=== PATIENT | male | born 1970 | race Caucasian/White ===

== ENCOUNTER 2017-01-19 12:53 | Observation (INO) | payer OTHER ==
[2017-01-19] VITALS (9 sets, daily range): BP systolic 99–145; BP diastolic 65–89; PULSE 69–90; RESP 17–20; TEMP 97.4–98.3; O2SAT 95–99
[~2017-01-19] VITALS: Ht 167.6 cm; Wt 100.0 kg
[2017-01-19] MEDS ORDERED: ZYRT10CA PO (13:04)
[2017-01-19] MEDS ORDERED: ASPIRIN 81 MG CHEW TAB PO ONE (13:45)
[2017-01-19] MEDS ORDERED: SODIUM CHLORIDE 0.9% FLUSH 5 ML FLUSH IVF PRN ×2 (13:45→17:15)
--- NOTE | 2017-01-19 14:03 | RADRPT ---
EXAM DATE/TIME: 01/19/2017 14:00 [facility] COMPARISON: No previous studies available for comparison. INDICATIONS : Left side chest pains, radiating into left arm with numbness, pain and left lower jaw pain. MEDICAL HISTORY : None. SURGICAL HISTORY : None. ENCOUNTER: Initial ACUITY: 2 days PAIN SCORE: 9/10 LOCATION: Left chest FINDINGS: PA and lateral views of the chest demonstrate the lungs to be symmetrically aerated without evidence of mass, infiltrate or effusion. The cardiomediastinal contours are unremarkable. Osseous structure s are intact.CONCLUSION: Normal examination. Ruben Puente MD on January 19, 2017 at 14:01 Board Certified Radiologist. This report was verified electronically.
[2017-01-19 14:04] LABS: AUTOMATED NEUTROPHIL # 5.1 TH/MM3 (1.8-7.7); BASOPHIL % 0.3 % (0.0-2.0); EOSINOPHIL # 0.1 TH/MM3 (0-0.4); EOSINOPHIL % 1.5 % (0.0-4.0); HEMATOCRIT 46.4 % (39.0-51.0); HEMO FLAGS DIFF FINAL; LYMPHOCYTE # 2.8 TH/MM3 (1.0-4.8); MEAN CELL VOLUME 87.6 FL (80.0-100.0); MEAN CORPUSCULAR HEMOGLOBIN 30.1 PG (27.0-34.0); MEAN CORPUSCULAR HGB CONC 34.4 % (32.0-36.0); MONO % 9.6 % (0.0-8.0); NEUT % 57.6 % (16.0-70.0); PLATELET COUNT 342 TH/MM3 (150-450); RED BLOOD COUNT 5.29 MIL/MM3 (4.50-5.90); RED CELL DISTRIBUTION WIDTH 13.1 % (11.6-17.2); WHITE BLOOD COUNT 8.9 TH/MM3 (4.0-11.0)
[2017-01-19 14:21] LABS: ALT (GPT) 48 U/L (12-78); ANION GAP 10 MEQ/L (5-15); APTT (PATIENT) 29.7 SEC (24.3-30.1); AST (GOT) 22 U/L (15-37); BICARBONATE 24.5 MEQ/L (21.0-32.0); BLOOD UREA NITROGEN 16 MG/DL (7-18); CHLORIDE 104 MEQ/L (98-107); GLOMERULAR FILTRATION RATE 81 ML/MIN (>89); PROTHROMBIN TIME - PATIENT 10.7 SEC (9.8-11.6); SODIUM (NA) 138 MEQ/L (136-145)
[2017-01-19 14:23] LABS: ALKALINE PHOSPHATASE 96 U/L (45-117); CREATINE KINASE 102 U/L (39-308); TOTAL BILIRUBIN ADULT 0.5 MG/DL (0.2-1.0)
--- NOTE | 2017-01-19 14:44 | RADRPT ---
EXAM DATE/TIME: 01/19/2017 14:28 [facility] COMPARISON: No previous studies available for comparison. INDICATIONS : altered mental status. RADIATION DOSE: 38.73 CTDIvol (mGy) MEDICAL HISTORY : None SURGICAL HISTORY : None. ENCOUNTER: Initial ACUITY: 1 day PAIN SCALE: 5/10 LOCATION: cranial TECHNIQUE: Multiple contiguous axial images were obtained of the head. Using automated exposure control and adj ustment of the mA and/or kV according to patient size, radiation dose was kept as low as reasonably a chievable to obtain optimal diagnostic quality images. FINDINGS: CEREBRUM: The ventricles are normal for age. No evidence of midline shift, mass lesion, hemorrhage or acute in farction. No extra-axial fluid collections are seen. POSTERIOR FOSSA: The cerebellum and brainstem are intact. The 4th ventricle is midline. The cerebellopontine angle i s unremarkable. EXTRACRANIAL: The visualized portion of the orbits is intact. SKULL: The calvaria is intact. No evidence of skull fracture. CONCLUSION: Normal examination. Ruben Puente MD on January 19, 2017 at 14:42 Board Certified Radiologist. This report was verified electronically.
--- NOTE | 2017-01-19 15:39 | PD ---
HPI Chief Complaint: Numbness/Tingling Time Seen by Provider: 13:21 Travel History International Travel<30 days: No Contact w/Intl Traveler<30days: No Traveled to known affect area: No History of Present Illness HPI Patient is a 46 year old male who comes in complaining of left sided arm numbness radiating up to his jaw. He also reports some left sided chest pain associated with this. He says this started last night. He says it is a pins and needle sensation medicine his arm. His also reports that he has had some episodes of confusion and seems to not remember everything. He has extensive family history of cardiac issues, his brothers had a heart transplant secondary to multiple MIs. His father at 45 from an [place]. He denies any nausea or vomiting. He says he's been feeling very weak. He denies any fever or chills. PFSH Past Medical History High Cholesterol: Yes GERD: Yes Immunizations Current: Yes Influenza Vaccination: No Past Surgical History Tonsillectomy: Yes Social History Alcohol Use: Yes (occas) Tobacco Use: No Substance Use: No Allergies-Medications (Allergen,Severity, Reaction): Coded Allergies: No Known Allergies (Unverified , 01/19/17) Reported Meds & Prescriptions Reported Meds & Active Scripts Active Reported Zyrtec Allergy (Cetirizine HCl) 10 Mg Cap 10 Mg PO DAILY Review of Systems Except as stated in HPI: all other systems reviewed are Neg General / Constitutional: No: Fever, Chills Eyes: No: Blurred Vision HENT: Positive: Headaches Cardiovascular: Positive: Chest Pain or Discomfort Respiratory: No: Shortness of Breath Gastrointestinal: No: Nausea, Vomiting Musculoskeletal: No: Myalgias, Pain Skin: No Rash, No Change in Pigmentation Neurologic: Positive: Paresthesia, No: Weakness, Dizziness Physical Exam Narrative GENERAL: Awake and alert, in no acute distress. SKIN: Warm and dry. HEAD: Atraumatic. Normocephalic. EYES: Pupils equal and round. No scleral icterus. Extraocular movements intact. ENT: Mucous membranes pink and moist. NECK: Trachea midline. No JVD. No cervical spine tenderness or trapezius tenderness. CARDIOVASCULAR: Regular rate and rhythm. No murmur appreciated. RESPIRATORY: No accessory muscle use. Clear to auscultation. Breath sounds equal bilaterally. GASTROINTESTINAL: Abdomen soft, non-tender, nondistended. MUSCULOSKELETAL: No obvious deformities. No clubbing. No cyanosis. No edema. NEUROLOGICAL: Awake and alert. No obvious cranial nerve deficits. Motor grossly within normal limits. Normal speech. Sensation intact. PSYCHIATRIC: Appropriate mood and affect; insight and judgment normal. Data Data Last Documented VS Vital Signs Date Time Temp Pulse Resp B/P Pulse Ox O2 Delivery O2 Flow Rate FiO2 01/19/17 15:35 99 Room Air 01/19/17 15:35 69 18 122/71 01/19/17 12:57 97.4 Orders Electrocardiogram (01/19/17 13:06) Ckmb (Isoenzyme) Profile (01/19/17 13:36) Complete Blood Count With Diff (01/19/17 13:36) Comprehensive Metabolic Panel (01/19/17 13:36) Prothrombin Time / Inr (Pt) (01/19/17 13:36) Act Partial Throm Time (Ptt) (01/19/17 13:36) Troponin I (01/19/17 13:36) Ecg Monitoring (01/19/17 13:36) Bilateral Bp Monitoring (01/19/17 13:36) Iv Access Insert/Monitor (01/19/17 13:36) Oximetry (01/19/17 13:36) Oxygen Administration (01/19/17 13:36) Aspirin Chew (Aspirin Chew) (01/19/17 13:45) Sodium Chloride 0.9% Flush (Ns Flush) (01/19/17 13:45) Chest, Pa & Lat (01/19/17 13:36) Ct Brain W/O Iv Contrast(Rout) (01/19/17 ) CKMB (01/19/17 13:40) CKMB% (01/19/17 13:40) Admit Order (Ed Use Only) (01/19/17 ) Labs Laboratory Tests Test 01/19/17 13:40 White Blood Count 8.9 TH/MM3 Red Blood Count 5.29 MIL/MM3 Hemoglobin 16.0 GM/DL Hematocrit 46.4 % Mean Corpuscular Volume 87.6 FL Mean Corpuscular Hemoglobin 30.1 PG Mean Corpuscular Hemoglobin 34.4 % Concent Red Cell Distribution Width 13.1 % Platelet Count 342 TH/MM3 Mean Platelet Volume 8.8 FL Neutrophils (%) (Auto) 57.6 % Lymphocytes (%) (Auto) 31.0 % Monocytes (%) (Auto) 9.6 % Eosinophils (%) (Auto) 1.5 % Basophils (%) (Auto) 0.3 % Neutrophils # (Auto) 5.1 TH/MM3 Lymphocytes # (Auto) 2.8 TH/MM3 Monocytes # (Auto) 0.9 TH/MM3 Eosinophils # (Auto) 0.1 TH/MM3 Basophils # (Auto) 0.0 TH/MM3 CBC Comment DIFF FINAL Differential Comment Prothrombin Time 10.7 SEC Prothromb Time International 1.0 RATIO Ratio Activated Partial 29.7 SEC Thromboplast Time Sodium Level 138 MEQ/L Potassium Level 4.0 MEQ/L Chloride Level 104 MEQ/L Carbon Dioxide Level 24.5 MEQ/L Anion Gap 10 MEQ/L Blood Urea Nitrogen 16 MG/DL Creatinine 1.00 MG/DL Estimat Glomerular Filtration 81 ML/MIN Rate Random Glucose 85 MG/DL Calcium Level 9.1 MG/DL Total Bilirubin 0.5 MG/DL Aspartate Amino Transf 22 U/L (AST/SGOT) Alanine Aminotransferase 48 U/L (ALT/SGPT) Alkaline Phosphatase 96 U/L Total Creatine Kinase 102 U/L Creatine Kinase MB 1.0 NG/ML Troponin I LESS THAN 0.02 NG/ML Total Protein 7.8 GM/DL Albumin 3.8 GM/DL [facility] Medical Decision Making Medical Screen Exam Complete: Yes Emergency Medical Condition: Yes Medical Record Reviewed: Yes Interpretation(s) ECG shows normal sinus rhythm, no ST elevation or depression, normal intervals. Differential Diagnosis ACS versus NSTEMI versus STEMI Narrative Course Patient is a 46-year-old male comes in complaining of numbness to his left arm radiating up to his jaw with some chest pain. Exam shows no acute abnormalities , no neurologic abnormalities. IV established, patient connected to the cardiac cath technologist. Patient given aspirin. CXR shows no acute abnormalities. CT head performed shows no acute abnormalities. Labs including troponin show no acute abnormalities. I spoke with of neurology who agrees his symptoms are likely cardiac in nature and they do not represent stroke/TIA symptoms. Patient placed in observation for further management. Diagnosis Primary Impression: Chest pain Qualified Code: R07.9 - Chest pain, unspecified type Admitting Information Admitting Physician Requests: Observation Jennifer Das MD Jan 19, 2017 15:39
[2017-01-19] MEDS ORDERED: ONDANSETRON HCL 4 MG/2 ML VIAL IV PRN (17:15)
[2017-01-19] MEDS ORDERED: ACETAMINOPHEN/HYDROcodone 325 MG/7.5 MG TAB PO PRN (17:15)
[2017-01-19] MEDS ORDERED: ALPRAZolam 0.25 MG TAB PO PRN (17:15)
[2017-01-19] MEDS ORDERED: ACETAMINOPHEN 500 MG CPLT PO PRN (17:15)
--- NOTE | 2017-01-19 17:22 | HHI.HP ---
[facility] Primary Care Physician Elidia Bai M.D. Chief Complaint Left arm tingling History of Present Illness This is a 46-year-old male that presents to the ED via private vehicle complaining of left arm numbness and tingling that began 1:00 this morning. The intensity waxes and wanes but has been constant. Nothing really to worsen the symptoms. States his neck has felt a little stiff but denies trauma. States the sensation also radiated at times her left jaw and neck. Nice weakness in extremity. Denies chest discomforts. Review of Systems General: Patient denies fevers, chills recent, and recent travel HEENT: Patient denies headache, sore throat, difficulty swallowing. Cardiovascular: Complains of tingling in his left arm. Denies chest pain. Denies sensation of heart beating rapidly or irregularly. No syncope. Respiratory: Denies shortness of breath or inspirational chest discomfort. Denies coughing wheezing or hemoptysis. GI: Patient denies nausea, vomiting, diarrhea, abdominal pain, bloody stools. Musculoskeletal: Patient denies joint pain or edema. Denies calf pain or edema. Neurovascular: Patient denies numbness, tingling, weakness in extremities. Denies headache. Complains of tingling in his left arm also radiating into the left jaw and neck. Endocrine: Denies polyuria and polydipsia. Hematologic: Denies easy bruising. Skin: Denies rash or itching. Past Family Social History Allergies: Coded Allergies: No Known Allergies (Unverified , 01/19/17) Past Medical History Hyperlipidemia however he takes no medication. Past Surgical History Tonsillectomy. Reported Medications Reported Meds & Active Scripts Active Reported Zyrtec Allergy (Cetirizine HCl) 10 Mg Cap 10 Mg PO DAILY Active Ordered Medications Current Medications Medications (Trade) Dose Ordered Sig/Juan Route Start Time Stop Time Status Last Admin (NS Flush) 2 ml UNSCH PRN IVF 01/19/17 13:45 Family History 2 brothers had AL and his younger brother had a heart transplant 39. Social History Patient is a lifetime nonsmoker. Has occasional alcohol. Denies illicit drugs. He works in maintenance. Physical Exam Vital Signs Vital Signs Date Time Temp Pulse Resp B/P Pulse Ox O2 Delivery O2 Flow Rate FiO2 01/19/17 15:35 99 Room Air 01/19/17 15:35 69 18 122/71 99 Room Air 01/19/17 15:35 67 18 99 Room Air 01/19/17 13:55 82 18 120/74 98 Room Air 131/89 01/19/17 12:57 97.4 77 20 138/80 95 Room Air Physical Exam GENERAL: This is a well-nourished, well-developed patient, in no apparent distress. Patient speaks in clear complete sentences. Patient is pleasant. HEENT: Head is atraumatic and normocephalic. Neck is supple without lymphadenopathy and trachea is midline. No JVD or carotid bruits. CARDIOVASCULAR: Regular rate and rhythm without murmurs, gallops, or rubs. RESPIRATORY: Clear to auscultation. Breath sounds equal bilaterally. No wheezes , rales, or rhonchi. Chest wall is nontender. No use of accessory muscles. GASTROINTESTINAL: Abdomen is nontender, nondistended. Abdomen soft. No obvious pulsatile mass or bruit. No CVA tenderness. Strong femoral pulses bilaterally. Normal bowel sounds in all quadrants. MUSCULOSKELETAL: Bit of discomfort with flexion extension of cervical spine. No spinous process point tenderness when palpating cervical, thoracic, or lumbar spine. Patient is moving upper and lower extremities freely. No calf tenderness or edema, no Homans sign. Strong pulses in upper and lower extremities. NEUROLOGICAL: Patient is alert and oriented. Cranial nerves 2-12 are grossly intact. No focal deficits and speech is clear. Strong sleeping car porter strength bilaterally. SKIN: No rash and turgor is normal. Laboratory Laboratory Tests Test 01/19/17 13:40 White Blood Count 8.9 Red Blood Count 5.29 Hemoglobin 16.0 Hematocrit 46.4 Mean Corpuscular Volume 87.6 Mean Corpuscular Hemoglobin 30.1 Mean Corpuscular Hemoglobin 34.4 Concent Red Cell Distribution Width 13.1 Platelet Count 342 Mean Platelet Volume 8.8 Neutrophils (%) (Auto) 57.6 Lymphocytes (%) (Auto) 31.0 Monocytes (%) (Auto) 9.6 Eosinophils (%) (Auto) 1.5 Basophils (%) (Auto) 0.3 Neutrophils # (Auto) 5.1 Lymphocytes # (Auto) 2.8 Monocytes # (Auto) 0.9 Eosinophils # (Auto) 0.1 Basophils # (Auto) 0.0 CBC Comment DIFF FINAL Differential Comment Prothrombin Time 10.7 Prothromb Time International 1.0 Ratio Activated Partial 29.7 Thromboplast Time Sodium Level 138 Potassium Level 4.0 Chloride Level 104 Carbon Dioxide Level 24.5 Anion Gap 10 Blood Urea Nitrogen 16 Creatinine 1.00 Estimat Glomerular Filtration 81 Rate Random Glucose 85 Calcium Level 9.1 Total Bilirubin 0.5 Aspartate Amino Transf 22 (AST/SGOT) Alanine Aminotransferase 48 (ALT/SGPT) Alkaline Phosphatase 96 Total Creatine Kinase 102 Creatine Kinase MB 1.0 Troponin I LESS THAN 0.02 Total Protein 7.8 Albumin 3.8 Result Diagram: 01/19/17 1340 01/19/17 1340 Imaging Last Impressions Chest X-Ray 01/19/17 1336 Signed Impressions: Service Date/Time: Thursday, January 19, 2017 14:00 - CONCLUSION: Normal examination. Ruben Puente MD Head CT 01/19/17 0000 Signed Impressions: Service Date/Time: Thursday, January 19, 2017 14:28 - CONCLUSION: Normal examination. Ruben Puente MD Course Initial EKG has sinus rhythm without significant ST segment depressions or elevations. Assessment and Plan Assessment and Plan * Atypical chest pain: Patient will have serial cardiac enzymes and EKGs for ruling out purposes. He will be seen by Dr. Stein in the chest pain center in the morning. He will have a Arjun protocol ETT most likely if his enzymes were to be normal. We will also get x-rays of the cervical spine to evaluate likely cervical radiculopathy. * Hyperlipidemia: Patient will need to discuss this with his PCP. He currently takes no medication. Dl Barrera Jan 19, 2017 17:22
--- NOTE | 2017-01-19 17:40 | RADRPT ---
EXAM DATE/TIME: 01/19/2017 17:38 [facility] COMPARISON: No previous studies available for comparison. INDICATIONS : Pain in neck and numbness radiates through left jaw and left arm. MEDICAL HISTORY : None. SURGICAL HISTORY : None. ENCOUNTER: Initial ACUITY: 1 day PAIN SCORE: 5/10 LOCATION: Left neck FINDINGS: Two projection examination was performed. There is normal alignment and curvature of the vertebral b odies down to the level of C7. No evidence of fracture or subluxation. Vertebral body height is yesica ntained. The disc spaces are maintained. The prevertebral soft tissues are of normal thickness. Th e atlanto-axial articulation is intact. CONCLUSION: Unremarkable limited examination of the cervical spine. Ruben Puente MD on January 19, 2017 at 17:38 Board Certified Radiologist. This report was verified electronically.
[2017-01-19] MEDS: PANTOPRAZOLE SOD 40 MG DELAYED RELEASE TAB PO SCH (17:46)
[2017-01-19 18:24] LABS: CREATINE KINASE 92 U/L (39-308)
[2017-01-19] MEDS: SODIUM CHLORIDE 0.9% FLUSH 5 ML FLUSH IVF SCH (21:00)
[2017-01-19 21:12] LABS: CREATINE KINASE 74 U/L (39-308)
[2017-01-20] VITALS (7 sets, daily range): BP systolic 121–140; BP diastolic 74–84; PULSE 71–79; RESP 18–20; TEMP 95.6–98.2; O2SAT 94–97
[2017-01-20] MEDS: PANTOPRAZOLE SOD 40 MG DELAYED RELEASE TAB PO SCH (08:35)
[2017-01-20] MEDS: SODIUM CHLORIDE 0.9% FLUSH 5 ML FLUSH IVF SCH (08:35)
[2017-01-20] MEDS ORDERED: ASPIRIN 325 MG TAB PO SCH (09:00)
--- NOTE | 2017-01-20 12:16 | RADRPT ---
EXAM DATE/TIME: 01/20/2017 10:09 [facility] COMPARISON: No previous studies available for comparison. INDICATIONS : Left sided chest pain radiating to left arm for 1 day. Angina DOSE: 35.0 mCi Tc99m Myoview at stress 11.0 mCi Tc99m Myoview at rest REST HEART RATE: 79 BPM TARGET HEART RATE: 150 BPM MAX HEART RATE: 155 BPM REST BLOOD PRESSURE: 144/88 mmHg MAX BLOOD PRESSURE: 162/70 mmHg EJECTION FRACTION: 69% MEDICAL HISTORY : Hypercholesterolemia. SURGICAL HISTORY : None. ENCOUNTER: Initial ACUITY: 1 day PAIN SCALE: 2/10 LOCATION: Left chest TECHNIQUE: The patient underwent upright treadmill exercise in the chest pain center. Continuous ECG tracing wa s monitored during stress. Gated SPECT imaging was performed after stress, and conventional SPECT im aging was performed at rest. The examination was performed on a SPECT/CT scanner, both attenuation-c orrected and non-corrected datasets were reviewed. FINDINGS: DISTRIBUTION: The maximum perfused segment at stress is in the lateral wall. PERFUSION STUDY: The pattern of perfusion at stress is within normal limits. GATED STUDY: There is intact wall motion and thickening without hypokinetic or dyskinetic segments. CONCLUSION: No reversible perfusion defects to suggest ischemia.. Normal ejection fraction. RISK CATEGORY: Low (<1% Annual Mortality Rate) Jairo Siegel MD on January 20, 2017 at 12:13 Board Certified Radiologist. This report was verified electronically.
--- NOTE | 2017-01-20 12:39 | EKG ---
Date Performed: 01/19/2017 Time Performed: 13:23:37 PTAGE: 46 years EKG: Sinus rhythm NORMAL ECG NO PREVIOUS TRACING DOCTOR: Courtney Stein Interpretating Date/Time 01/20/2017 12:38:28
--- NOTE | 2017-01-20 12:39 | TR ---
Date Performed: 01/20/2017 Time Performed: 10:54:03 DOCTOR: Courtney Stein DRUG LIST: CLINICAL HISTORY: REASON FOR TEST: REASON FOR ENDING: OBSERVATION: CONCLUSION: Arjun protocol completed. Stopped sec to leg fatigue and reaching target heart rate. Maximum TV=453 Target HR Achieved=88.0% Maximum QD=553/70 Total Exercise Time=8:00. No reprod chest discomfort. No ectopy. Normal bp response. COMMENTS:
--- NOTE | 2017-01-20 12:40 | EKG ---
Date Performed: 01/19/2017 Time Performed: 17:19:27 PTAGE: 46 years EKG: Sinus rhythm NONSPECIFIC T-WAVE ABNORMALITY BORDERLINE ECG Since PREVIOUS TRACING , no significant change noted PREVIOUS TRACIN01/19/2017 13.23 DOCTOR: Courtney Stein Interpretating Date/Time 01/20/2017 12:39:17
--- NOTE | 2017-01-20 12:41 | EKG ---
Date Performed: 01/19/2017 Time Performed: 20:49:23 PTAGE: 46 years EKG: Sinus rhythm NONSPECIFIC T-WAVE ABNORMALITY BORDERLINE ECG Since PREVIOUS TRACING , no significant change noted PREVIOUS TRACIN01/19/2017 17.19 DOCTOR: Courtney Stein Interpretating Date/Time 01/20/2017 12:40:26
--- NOTE | 2017-01-20 12:47 | HHI.DCPOC ---
Discharge Care Plan Diagnosis: (1) Atypical chest pain Goals to Promote Your Health * To prevent worsening of your condition and complications * To maintain your health at the optimal level Directions to Meet Your Goals Take your medications as prescribed Follow your dietary instruction Follow activity as directed Keep your appointments as scheduled Take your immunizations and boosters as scheduled If your symptoms worsen call your PCP, if no PCP go to Urgent Care Center or Emergency Room Smoking is Dangerous to Your Health. Avoid second hand smoke Call the 24-hour hour crisis hotline for domestic abuse at [facility] [place] Jan 20, 2017 12:47
== END 2017-01-20 15:55 | disposition home or self-care (01) ==
LOC: NEPA 12:53 → NEDA 15:40 → NEPGCP 17:37
PROVIDERS: ADMIT Internal Medicine Cardiovascular Disease; ATTEND Internal Medicine Cardiovascular Disease
DX: R07.89 Other chest pain (principal); R68.84 Jaw pain; R20.2 Paresthesia of skin; R20.0 Anesthesia of skin; E78.00 Pure hypercholesterolemia, unspecified; E78.5 Hyperlipidemia, unspecified; K21.9 Gastro-esophageal reflux disease without esophagitis; Z82.49 Family history of ischemic heart disease and other diseases of the circulatory system
CPT/HCPCS: 70450; 71020; 72040; 78452; 80053; 82550; 82552; 84484; 85025; 85610; 85730; 93005; 93017; 99285; A9502; G0378